=== PATIENT | female | born 1945 | race Hispanic/Latino ===

== ENCOUNTER → 2018-08-13 | Day surgery (SDC) | payer OTHER ==
[2018-08-12 15:22] LABS: BASOPHILS % 0.1 % (0.0-1.0); EOSINOPHILS # (AUTO) 0.1 (0.0-0.4); HEMATOCRIT 41.6 % (34.2-44.1); HEMOGLOBIN 13.8 g/dL (12.0-16.0); LYMPHOCYTES % 27.8 % (18.0-39.1); MEAN CORPUSCULAR HEMOGLOBIN 27.6 pg (28-32); MEAN CORPUSCULAR HGB CONC 33.2 g/dL (31-35); MEAN CORPUSCULAR VOLUME 83.2 fL (81-99); MONOCYTES # (AUTO) 0.4 (0.2-0.8); MONOCYTES % 5.8 % (4.4-11.3); NEUTROPHILS # (AUTO) 4.7 (2.1-6.9); NEUTROPHILS % 64.9 % (38.7-80.0); PLATELET COUNT 193 x10e3/uL (140-360); RED CELL DISTRIBUTION WIDTH 13.5 % (11.7-14.4)
[2018-08-12 15:43] LABS: ANION GAP 13.6 mmol/L (8-16); BLOOD UREA NITROGEN 13 mg/dL (7-26); BUN/CREATININE RATIO 19 (6-25); CALCIUM 9.6 mg/dL (8.4-10.2); CARBON DIOXIDE 28 mmol/L (22-29); CHLORIDE 100 mmol/L (98-107); EST GLOMERULAR FILTRATION RATE > 60 ML/MIN (60-); GLUCOSE 96 mg/dL (74-118); POTASSIUM 3.6 mmol/L (3.5-5.1); SODIUM 138 mmol/L (136-145)
--- NOTE | 2018-08-12 15:52 | Diagnostic Imaging Report ---
EXAMINATION: PA and lateral views of the chest. COMPARISON: None. CLINICAL HISTORY: Right internal hernia, preop exam DISCUSSION: Lines/tubes: None. Lungs: The lungs are well inflated and clear. There is no evidence of pneumonia or pulmonary edema. Pleura: There is no pleural effusion or pneumothorax. Heart and mediastinum: Cardiomediastinal silhouette is unremarkable. Pulmonary vasculature is normal. Bones and soft tissues: No acute bony abnormalities. Degenerative changes in the thoracic spine IMPRESSION: No acute cardiopulmonary abnormalities. Signed by: Dr. Brady Zhang M.D. on 08/12/2018 3:49 PM
[~2018-08-13] MED LIST: AZITHROMYCIN250 MG PO; BUPIVACAINE 0.25%/EPI 30ML SDV INJ ONE; CEFAZOLIN SOD 1 GM/D5W 50ML 50 ML IV ONE; LEVOTHYROXINE50 MCG PO; LIDOCAINE 1% W/EPINEPHRINE 20 ML VIAL ONE; MORPHINE SULFATE INJ 4 MG/ML INJ ONE; TRIAMTERENE-HCTZ1 EA PO; VIT D3 PO
--- OUTSIDE RECORDS SUMMARY | 2018-08-13 08:16 | XMS REPORT ---
Author Author [facility] [place] Address Unknown Phone Unavailable Care Team Providers Care Meter Calibrator Name Role Phone MIRYAM PIKE PP Unavailable IDRIS CROWELL Unavailable Unavailable IESHA ALFARO Unavailable Unavailable Problems This patient has no known problems. Allergies, Adverse Reactions, Alerts This patient has no known allergies or adverse reactions. Medications This patient has no known medications. Results Test Description Test Time Test Comments Text Results Atomic Results Result Comments CHEST 2 VIEWS 2018-08-12 15:48:00 [place] [address] Patient Name: CARLOS MYLES MR #: [id number] : 1945 Age/Sex: 73/F Req #: [id number] Adm Physician: Ordered by: IDRIS CROWELL MD Report #: [id number] Location: OR Room/Bed: Procedure: [id number] DX/CHEST 2 VIEWS Exam Date: Exam Time: REPORT STATUS: Signed EXAMINATION: PA and lateral views of the chest. COMPARISON: None. CLINICAL HISTORY: Right internal hernia, preop exam DISCUSSION: Lines/tubes: None. Lungs: The lungs are well inflated and clear. There is no evidence of pneumonia or pulmonary edema. Pleura: There is no pleural effusion or pneumothorax. Heart and mediastinum: Cardiomediastinal silhouette is unremarkable. Pulmonary vasculature is normal. Bones and soft tissues: No acute bony abnormalities. Degenerative changes in the thoracic spine IMPRESSION: No acute cardiopulmonary abnormalities. Signed by: Dr. Dianna Zhang M.D. on 08/12/2018 3:49 PM Dictated By: DIANNA ZHANG MD 48 Transcribed By: ELIAS on 08/12/181548 COPY TO: [place] [id number]&PELVIS W/CONTRAST 2017-04-26 17:16:31 CT OF THE ABDOMEN AND PELVIS WITH CONTRASTLocation code: [id number] HISTORY:Abdominal painCOMPARISON: None available.TECHNIQUE: 5 mm contiguous axial images were obtained from thediaphragmatic dome through the symphysis pubis after administrationof 100 mL Isovue-300 intravenous contrast coronal and sagittalreconstructions were also obtained. One or more of the following dosereduction techniques were used: Automated exposure control, adjustmentof the mA and/or kV according to patient size, and/or utilization ofiterative reconstruction technique. Creatinine: 0.7 mg/dL, GFR: Greaterthan 60, DLP: 404 mGy-cmFINDINGS: AbdomenThe visualized structures of the lower thorax are unremarkable.Small hyperenhancing focus is identified in the left hepatic lobefavored to represent a flash filling h emangioma versus focus of vascularshunting. No further mass lesions are identified within liver. Thespleen, pancreas, adrenal glands, and kidneys are within normal limits.There is no hydronephrosis or hydroureter. Diverticula are identifiedwithin the descending and sigmoid colon without further CT evidence ofacute diverticulitis. The remaining small and large bowel loops arenormal in caliber. A normal caliber appendix is identified in the rightlower quadrant. No mesenteric or retroperitoneal lymphadenopathy is found. No free intraperitoneal air or fluid is seen.Abdominal aorta and inferior vena cava are within normal limits.FINDINGS: PelvisThe intrapelvic structures are intact. The urinary bladder isadequately distended. There is no free pelvic fluid.There is no pelvic or inguinal adenopathy.The visualized skeletal structures are within normal limits. No discreteosteolytic or osteosclerotic lesions are seen.IMPRESSION:1. Descending and sigmoid colon diverticulosis without further CTevidence of acute diverticulitis. The graft2. Small hyperenhancing focus in the left hepatic lobe which represent aflash filling hemangioma. Comprehensive Metabolic Panel 2017-04-26 15:36:00 Sodium (test code=NA) 140 mmol/L 135-145 Potassium (test code=K) 3.8 mmol/L 3.5-5.1 Chloride (test code=CL) 105 mmol/L 98-105 Carbon Dioxide (test code=CO2) 26 mmol/L 22-29 Glucose (test code=GLU) 112 mg/dL 70-115 Blood Urea Nitrogen (test code=BUN) 13 mg/dL 8-23 Creatinine (test code=CREAT) 0.7 mg/dL 0.5-0.9 Calcium (test code=CA) 9.3 mg/dL 8.3-10.5 Prot Total (test code=TP) 6.8 g/dL 6.4-8.3 Albumin (test code=ALB) 4.3 g/dL 3.5-5.2 A/G Ratio (test code=AGRATIO) 1.7 Ratio Globulin (test code=GLOB) 2.5 2.9-3.1 Bili Total (test code=TBIL) 0.2 mg/dL 0.1-0.9 Alk Phos (test code=APHOS) 100 U/L 35-104 AST (test code=AST) 18 U/L 1-32 ALT (test code=ALT) 11 U/L 1-33 BUN/Creatinine Ratio (test code=BCRATIO) 18.6 Anion Gap (test code=AGAP) 9 mmol/L 7-16 Estimated GFR (test code=GFR) >60 mL/min/1.73m2 eGFR (estimated Glomerular Filtration Rate) is an estimated value,calculated from the patient's serum creatinine using the MDRD equation.It is NOT the patient's actual GFR. The eGFR provides a more clinicallyuseful measure of kidney disease than serum creatinine alone.This calculation takes sex and race into account, if the informationis provided. If the race is not provided, and the patient isAfrican-Equatorial [place], multiply by 1.212. If sex is not provided, and thepatient is female, multiply by 0.742. Results for patients <18 years ofage have not been validated by the MDRD study and should be interpretedwith caution.eGFR Result Interpretation:eGFR > or=60 is in the Normal RangeeGFR < 60 may mean kidney diseaseeGFR < 15 may mean kidney failureRanges recommended by the National Kidney Foundat ion,http://nkdep.nih.gov CBC with [id number] 15:18:00* Test Item Value Reference Range Comments WBC (test code=WBC) 7.0 K/cumm 4.4-10.5 RBC (test code=RBC) 4.93 M/cumm 3.75-5.20 Hemoglobin (test code=HGB) 13.8 gm/dL 12.2-14.8 Hematocrit (test code=HCT) 40.6 % 36.5-44.4 MCV (test code=MCV) 82.5 fL 80-100 MCH (test code=MCH) 27.9 pg 27.0-32.5 MCHC (test code=MCHC) 33.9 g/dL 32.0-37.5 RDW (test code=RDW) 13.1 % 11.5-14.5 Platelet Count (test code=PLTCT) 182 K/cumm 140-440 MPV (test code=MPV) 7.6 fL Diff Method (test code=DIFFM) Auto Neutrophil (test code=NEUT) 66.7 % 36-70 Lymphocyte (test code=LYMPH) 28.0 % 12-44 Monocyte (test code=MONO) 3.7 % 0-11 Eosinophil (test code=EOS) 1.2 % 0-7 Basophil (test code=BASO) 0.3 % 0-2 Neutro Abs (test code=ANEUT) 4.7 K/cumm 1.6-7.4 Lymph Abs (test code=ALYMPH) 2.0 K/cumm 0.5-4.6 [place] Abs (test code=AMONO) 0.3 K/cumm 0.0-1.2 Eos Abs (test code=AEOS) 0.09 K/cumm 0.00-0.74 Baso Abs (test code=ABASO) 0.0 K/cumm 0.00-0.21 Urinalysis [id number] 15:18:00* Test Item Value Reference Range Comments Color (test code=COLOR) Straw Yellow,Straw,Pl yellow Clarity (test code=CLAR) Clear Clear Specific [place] (test code=SPGR) 1.008 1.001-1.035 pH (test code=PH) 7.0 5.0-9.0 Ketone (test code=KET) Negative mg/dL Negative Glucose (test code=GLUCUR) Negative mg/dL Negative Protein (test code=PROT) Negative mg/dL Negative Bilirubin (test code=BILI) Negative mg/dL Negative Occult Blood (test code=UDOB) Negative Negative Urobilinogen (test code=UROB) 0.2 mg/dL 0.2-1.0 Nitrite (test code=NIT) Negative Negative Leuk Esterase (test code=LEUK) Negative Negative Micros Exam (test code=MEXAM) Not indicated
[2018-08-13 16:45] VITALS: BP 150/70
--- NOTE | 2018-09-03 17:00 | Operative Report ---
DATE OF PROCEDURE: August 13, 2018 PREOPERATIVE DIAGNOSIS: Right inguinal hernia. POSTOPERATIVE DIAGNOSIS: Right inguinal hernia. PROCEDURE PERFORMED: Repair of right inguinal hernia. AVIATION SAFETY OFFICER: GRACY Meza ANESTHESIA: General endotracheal. ESTIMATED BLOOD LOSS: Minimal. DRAINS: None. COMPLICATIONS: None. INDICATIONS AND FINDINGS: The patient is a pleasant 73-year-old female who has been complaining of right groin pain for several months. Preoperatively, the patient had an ultrasound that revealed no pelvic abnormalities. PHYSICAL AND INTRAOPERATIVE FINDINGS: The patient had a right inguinal hernia, direct type. There was no evidence of femoral herniation. There was no indirect hernia sac. The floor was bulging at the level of the internal ring. The Ultrapro Hernia System oval type was placed. DESCRIPTION OF PROCEDURE: With the patient lying on the operative table in the supine position, after administration of general anesthesia, she was prepped and draped for repair of a right inguinal hernia. Preemptive anesthesia was given with 0.25% Marcaine with epinephrine as an ilioinguinal nerve block and incisional nerve block. A transverse incision was made and deepened through the skin, subcutaneous tissue and Kalee fascia until the external oblique aponeurosis was identified. This was incised along the course of its fibers, transecting the external inguinal ring. Medial and lateral leaves were developed. The round ligament was identified and detached from the pubic tubercle insertion and tied off with 2-0 Vicryl and then tied off high at the level of the internal ring and excised. Then the transversalis fascia was bulging with a large defect in the area of the internal ring in the upper part of the canal. We dissected the preperitoneal space and then placed an Ultrapro Hernia System oval type with the underlay part of the mesh over the direct space and the overlay part of the mesh over the inguinal canal floor. A slit was made to accommodate the cord. Then the mesh was secured to local tissues using a series of interrupted 2-0 Ethibond sutures that were used to secure the mesh to the local tissues. After we secured the mesh, we pronounced the sponge and instrument counts to be correct. Then we closed the wounds using #0 Vicryl for the external oblique aponeurosis and 2-0 plain catgut for the soft tissues, and the skin was closed using eliseo. Marcaine 0.25% with epinephrine was given as a local block at the end of the case. The patient tolerated the procedure well and was taken to the recovery room in stable condition. Job#: [id number] RONALD
== END | disposition home or self-care (01) ==
LOC: OR 08:13
PROVIDERS: ATTEND Surgery
DX: K40.90 Unilateral inguinal hernia, without obstruction or gangrene, not specified as recurrent (principal); I10 Essential (primary) hypertension; E07.9 Disorder of thyroid, unspecified; Z01.810 Encounter for preprocedural cardiovascular examination; Z01.812 Encounter for preprocedural laboratory examination; Z01.818 Encounter for other preprocedural examination
CPT/HCPCS: 36415; 49505; 71046; 80048; 85025; 88302; 93005 ×2; C1781; J0690; J2270; 88304